=== PATIENT | female | born 1965 | race Caucasian/White ===

== ENCOUNTER 2019-02-24 12:27 | Outpatient (CLI) | payer BC ==
--- NOTE | 2019-02-24 13:08 | MMO ---
Bilateral MAMMO Bilat Screen [facility]. CLINICAL HISTORY: Patient is 53 years old and is seen for screening. The patient has the following family history of breast cancer: maternal aunt, at age 46 and maternal grandmother, at age 52. The patient has no personal history of cancer. VIEWS: The views performed were: bilateral craniocaudal with tomosynthesis and bilateral mediolateral oblique with tomosynthesis. FILMS COMPARED: The present examination has been compared to prior imaging studies performed at 02/02/2015 and 02/04/2016. MAMMOGRAM FINDINGS: The breasts are almost entirely fat. There are no suspicious masses, suspicious calcifications, or new areas of architectural distortion. IMPRESSION: THERE IS NO MAMMOGRAPHIC EVIDENCE OF MALIGNANCY. A ROUTINE FOLLOW-UP MAMMOGRAM IN 1 YEAR IS RECOMMENDED. THE RESULTS OF THIS EXAM WERE SENT TO THE PATIENT. ACR BI-RADS Category 1 - Negative MAMMOGRAPHY NOTE: 1. A negative mammogram report should not delay a biopsy if a dominant of clinically suspicious mass is present. 2. Approximately 10% to 15% of breast cancers are not detected by mammography. 3. Adenosis and dense breasts may obscure an underlying neoplasm.
== END 2019-02-24 12:28 | disposition home or self-care (01) ==
LOC: BICMAMMO 12:27
PROVIDERS: ATTEND Family Medicine
DX: Z12.31 Encounter for screening mammogram for malignant neoplasm of breast (principal); Z80.3 Family history of malignant neoplasm of breast
CPT/HCPCS: 77063; 77067

== ENCOUNTER 2020-01-02 06:55 | Outpatient (CLI) | payer BC ==
--- NOTE | 2020-01-02 08:45 | ULT ---
RIGHT UPPER QUADRANT ULTRASOUND: Date: 01/02/2020 HISTORY: 54-year-old female with epigastric pain. FINDINGS: The liver, gallbladder, right kidney, and visualized portions of the pancreas again noted. The common duct measures 4.0 mm in diameter. No free fluid is seen. IMPRESSION: No significant abnormalities are identified. POS: [facility]
== END 2020-01-02 06:56 | disposition home or self-care (01) ==
LOC: BICULT 06:55
PROVIDERS: ATTEND Family Medicine
DX: R10.13 Epigastric pain (principal)
CPT/HCPCS: 76705

== ENCOUNTER 2020-12-13 12:53 | Outpatient (CLI) | payer BC | END 2020-12-13 12:54 | disposition home or self-care (01) | LOC: BICMAMMO 12:53 | PROVIDERS: ATTEND Family Medicine | DX: Z12.31 Encounter for screening mammogram for malignant neoplasm of breast (principal); Z13.820 Encounter for screening for osteoporosis; M80.8 Other osteoporosis with current pathological fracture; F41.1 Generalized anxiety disorder; E89.40 Asymptomatic postprocedural ovarian failure; M85.859 Other specified disorders of bone density and structure, unspecified thigh; Z80.3 Family history of malignant neoplasm of breast | CPT/HCPCS: 77063; 77067; 77080 ==

== ENCOUNTER 2021-02-07 14:32 | Outpatient (CLI) | payer BC | END 2021-02-07 14:33 | disposition home or self-care (01) | LOC: BICMRI 14:32 | PROVIDERS: ATTEND Orthopaedic Surgery | DX: M25.511 Pain in right shoulder (principal); M19.011 Primary osteoarthritis, right shoulder ==

== ENCOUNTER 2021-08-15 12:13 | Outpatient (CLI) | payer BC | END 2021-08-15 12:14 | disposition home or self-care (01) | LOC: NM 12:13 | PROVIDERS: ATTEND Family Medicine | DX: R10.11 Right upper quadrant pain (principal); R94.8 Abnormal results of function studies of other organs and systems | CPT/HCPCS: 78227; A9537 ==

== ENCOUNTER 2021-10-21 11:50 | Outpatient (CLI) | payer BC ==
[2021-10-21 13:03] LABS: #Monocytes 0.5 10x3/uL (0.0-1.1); #Neutrophils 4.4 10x3/uL (1.5-8.4); %Basophils 0.5 % (0.0-2.0); %Eosinophils 0.1 % (0.0-6.0); %Lymphocytes 31.8 % (18.0-47.0); %Monocytes 7.4 % (0.0-10.0); %Neutrophils 59.9 % (40.0-75.0); Hemoglobin 12.7 g/dL (12.0-15.5); Mean Corpuscular HGB CONC 31.8 g/dL (32.0-36.0); Mean Corpuscular Hemoglobin 28.5 pg (27.0-33.0); Mean Corpuscular Volume 89.7 fl (81.6-98.3); Mean Platelet Volume 10.9 fl (7.4-10.4); Platelet Count 357 10x3/uL (150-450); RBC Distribution Width 15.5 % (11.5-14.5); Red Blood Cell (RBC) Count 4.45 10x6/uL (3.90-5.03); White Blood Cell (WBC) Count 7.3 10x3/uL (3.5-10.5)
[2021-10-21 13:40] LABS: ALT (SGPT) 19 U/L (8-55); AST (SGOT) 17 U/L (5-34); Albumin 4.4 g/dL (3.5-5.0); Alkaline Phosphatase 93 U/L (40-110); Anion Gap 15 mmol/L (10-20); BUN (Urea Nitrogen) 18 mg/dL (9.8-20.1); Bilirubin, Direct 0.3 mg/dL (0.1-0.3); Bilirubin, Total 0.7 mg/dL (0.2-1.2); Calc. Creatinine Clearance 0 mL/min (70-130); Calcium 9.2 mg/dL (7.8-10.44); Carbon Dioxide 27 mmol/L (22-29); Chloride 104 mmol/L (98-107); Glucose 89 mg/dL (70-105); Potassium 4.6 mmol/L (3.5-5.1); Protein, Total 6.9 g/dL (6.0-8.3); Sodium 141 mmol/L (136-145)
[2021-10-22 08:24] LABS: SARS-CoV-2 PCR by NAA DETECTED (NotDetected)
== END 2021-10-21 11:51 | disposition home or self-care (01) ==
LOC: LABBT 11:50
PROVIDERS: ATTEND Surgery
DX: Z01.812 Encounter for preprocedural laboratory examination (principal); U07.1 COVID-19; K82.8 Other specified diseases of gallbladder
CPT/HCPCS: 80048; 80076; 85025; U0003; U0005

== ENCOUNTER 2021-12-05 06:09 | Day surgery (SDC) | payer BC ==
[2021-10-16 13:26] VITALS: BMI 33.3
[2021-12-05] MEDS ORDERED: Lidocaine 1% MPF 2 ML VIAL ONE (07:50)
[2021-12-05] MEDS ORDERED: Lidocaine Viscous Sol 2% 15 ml UD Cup ONE (08:27)
[2021-12-05] MEDS ORDERED: Lidocaine 2% PF 5 ML VIAL ONE (08:27)
[2021-12-05] MEDS ORDERED: Xylocaine 1% w/ Epi 1:100K 10 ML VIAL ONE (08:35)
[2021-12-05] MEDS ORDERED: Bupivacaine 0.25% HCL 30 ML VIAL ONE (08:35)
[2021-12-05] MEDS ORDERED: Fentanyl 250 MCG/5 ML VIAL ONE ×2 (08:36→10:03)
[2021-12-05] MEDS ORDERED: Midazolam HCl 2 mg/2 ml Vial ONE (08:36)
[2021-12-05] MEDS ORDERED: Ketamine 50 MG/ML (10ML VIAL) ONE (08:36)
[2021-12-05] MEDS ORDERED: ceFAZolin 2 GM/Dextrose 50 ML IVPB ONE (08:46)
[2021-12-05] MEDS ORDERED: Lidocaine 4% Topical Sol 50 ML BOT ONE (08:48)
[2021-12-05] MEDS ORDERED: Glycopyrrolate 0.2 MG/ML 5 ML SYRINGE ONE (08:50)
[2021-12-05] MEDS ORDERED: Lidocaine 1% PF 5 ML VIAL ONE (08:50)
[2021-12-05] MEDS ORDERED: Rocuronium Bromide 10 MG/ML (10ML VIAL) ONE (08:50)
[2021-12-05] MEDS ORDERED: Dexamethasone 20 MG/5 ML VIAL ONE (08:50)
[2021-12-05] MEDS ORDERED: Ondansetron PF 4 MG/2 ML Vial ONE (08:50)
[2021-12-05] MEDS ORDERED: PROPOFOL 200 MG/20 ML VIAL ONE (08:50)
== END 2021-12-05 11:17 | disposition home or self-care (01) ==
LOC: SDC 06:09
PROVIDERS: ATTEND Surgery
PROC: 0FT44ZZ Resection of Gallbladder, Percutaneous Endoscopic Approach (ICD-10-PCS; principal; 2021-12-05)
DX: K81.1 Chronic cholecystitis (principal); K82.8 Other specified diseases of gallbladder; Z79.899 Other long term (current) drug therapy; Z88.5 Allergy status to narcotic agent; Z88.8 Allergy status to other drugs, medicaments and biological substances
CPT/HCPCS: 88304; C1713; J0690; J1100; J2001; J2250; J2405; J2704; J3010; S0020

== ENCOUNTER 2022-06-12 11:33 | Outpatient (CLI) | payer BC | END 2022-06-12 11:34 | disposition home or self-care (01) | LOC: BICMAMMO 11:33 | PROVIDERS: ATTEND Family Medicine | DX: Z12.31 Encounter for screening mammogram for malignant neoplasm of breast (principal); Z80.3 Family history of malignant neoplasm of breast | CPT/HCPCS: 77063; 77067 ==

== ENCOUNTER 2023-11-20 15:23 | Outpatient (CLI) | payer BC | END 2023-11-20 15:24 | disposition home or self-care (01) | LOC: BICMAMMO 15:23 | PROVIDERS: ATTEND Internal Medicine Rheumatology | DX: M81.0 Age-related osteoporosis without current pathological fracture (principal); M85.89 Other specified disorders of bone density and structure, multiple sites | CPT/HCPCS: 77080 ==